=== PATIENT | female | born 1955 | race Caucasian/White ===

== ENCOUNTER 2017-11-04 15:31 | Outpatient (RCR) | payer OTHER ==
[~2017-11-04 15:31] MED LIST: ASPI-84; CARV6.25; CLOP75TA; HCT25T; HYDR-2890 PO; MORP60TA28 PO; RMP5C
== END 2017-11-06 | disposition home or self-care (01) ==
PROVIDERS: ATTEND Internal Medicine
DX: M54.41 Lumbago with sciatica, right side (principal)

== ENCOUNTER 2017-11-24 12:52 | Outpatient (RCR) | payer OTHER | END 2018-01-18 12:04 | disposition home or self-care (01) | PROVIDERS: ATTEND Internal Medicine | DX: M54.41 Lumbago with sciatica, right side (principal) ==

== ENCOUNTER → 2018-11-14 | Outpatient (CLI) | payer BC ==
--- NOTE | 2018-11-14 11:44 | Diagnostic Imaging Report ---
PROCEDURE: US Gallbladder. TECHNIQUE: Multiple real-time grayscale images were obtained over the right upper quadrant in various projections. INDICATION: Acute right flank pain. There are no prior studies available for comparison. FINDINGS: There is cholelithiasis and the gallbladder does seem somewhat distended. The gallbladder wall is not thickened and there is no pericholecystic fluid to suggest acute cholecystitis. However, the common bile duct is dilated measuring 8.5 mm (normal 6 mm or less). There is no evidence for choledocholithiasis or for a mass to account for the dilatation of the common bile duct. If further evaluation is desired, however, then MRCP would be recommended. The liver is prominent and somewhat more echogenic than usually seen. This does suggest fatty metamorphosis. There is no focal mass involving the liver and the biliary tree is not abnormally dilated. The pancreas, right kidney and proximal aorta and inferior vena cava were unremarkable. IMPRESSION: 1. There is cholelithiasis and the gallbladder does seem distended. There is no evidence for acute cholecystitis but there is dilatation of the common bile duct. If further evaluation of the common bile duct is desired, then MRCP would be recommended. 2. The appearance of the liver does suggest fatty metamorphosis. Dictated by: Dictated on workstation # [id number]
== END ==
LOC: RAD 08:48
PROVIDERS: ATTEND Family Medicine
DX: K80.20 Calculus of gallbladder without cholecystitis without obstruction (principal); K83.8 Other specified diseases of biliary tract
CPT/HCPCS: 76705

== ENCOUNTER 2019-02-09 05:29 | Outpatient (CLI) | payer BC ==
[~2019-02-09] VITALS: Ht 170.2 cm; Wt 90.0 kg
[2019-02-09] MEDS ORDERED: OXYC-465 PO (14:24)
[2019-02-09] MEDS ORDERED: POTA-51 PO (14:24)
[2019-02-09] MEDS ORDERED: MORP-33 PO (14:24)
[2019-02-09] MEDS ORDERED: DIAZ10TA3 PO (14:24)
[2019-02-09] MEDS ORDERED: SENN-109 PO (14:24)
[2019-02-09] MEDS ORDERED: PRAV20TA3 PO (14:24)
[2019-02-09] MEDS ORDERED: MORP30CP12 PO (14:24)
[2019-02-09] MEDS ORDERED: GLYB5TAB6 PO ×2 (14:24)
[2019-02-09] MEDS ORDERED: ASPI-999 PO (14:24)
[2019-02-09] MEDS ORDERED: HYDR25TA4 PO (14:24)
[2019-02-09] MEDS ORDERED: CARV6.252 PO (14:24)
[2019-02-09] MEDS ORDERED: RAMI10CA69 PO (14:24)
== END 2019-02-09 14:28 | disposition home or self-care (01) ==
LOC: PREOP 05:29
PROVIDERS: ATTEND Surgery
DX: Z01.818 Encounter for other preprocedural examination (principal)

== ENCOUNTER → 2020-04-01 | Outpatient (CLI) | payer BC, MEDICARE ==
[~2020-04-01] MED LIST changes: +ASPI-999 PO; +CARV6.252 PO; +DIAZ10TA3 PO; +GLBR5T PO; +HYDR25TA4 PO; +MORP-68 PO; +MORP30CP12 PO; +OXYC-556 PO; +POTA-51 PO; +PRAV20TA3 PO; +RAMI10CA69 PO; +SENN-109 PO
[2020-04-01 13:20] LABS: ALANINE AMINOTRANSFERASE 21 U/L (0-55); ALBUMIN 4.3 GM/DL (3.2-4.5); ALKALINE PHOSPHATASE 58 U/L (40-136); BILIRUBIN,TOTAL 0.5 MG/DL (0.1-1.0); BUN/CREATININE RATIO 19; CALCIUM 9.5 MG/DL (8.5-10.1); CARBON DIOXIDE 23 MMOL/L (21-32); CHLORIDE 97 MMOL/L (98-107); CHOLESTEROL 164 MG/DL (< 200); CREATININE SERUM 0.84 MG/DL (0.60-1.30); GFR ESTIMATED > 60; GLUCOSE 233 MG/DL (70-105); HDL CHOLESTEROL 42 MG/DL (40-60); POTASSIUM 3.9 MMOL/L (3.6-5.0); SODIUM 132 MMOL/L (135-145); TOTAL PROTEIN 7.4 GM/DL (6.4-8.2); TRIGLYCERIDES 113 MG/DL (<150); VLDL CHOLESTEROL 23 MG/DL (5-40)
== END ==
LOC: CARD 13:00
PROVIDERS: ATTEND Physician Assistant
DX: I25.10 Atherosclerotic heart disease of native coronary artery without angina pectoris (principal); I34.0 Nonrheumatic mitral (valve) insufficiency; I51.7 Cardiomegaly; E78.2 Mixed hyperlipidemia; Z95.5 Presence of coronary angioplasty implant and graft
CPT/HCPCS: 36415; 80053; 80061; 84443; 93225; 93226; 93306

== ENCOUNTER → 2021-04-08 | Outpatient (CLI) | payer MEDICARE ==
[~2021-04-08] MED LIST changes: +CATHETER FLUSH 10 ML SYR IVP PRN
[2021-04-08 09:49] VITALS: BP 170/80
[2021-04-08 09:55] VITALS: BP 173/81
--- NOTE | 2021-04-08 16:14 | Cardiology Stress Test Report ---
Stress Test Report Date of Procedure/Referring: Date of Procedure: Apr 08, 2021 Brianda Graham Admitting Physician Reyes Chappell MD Indications: HTN Baseline Heart Rate: 60 Baseline Blood Pressure: Blood Pressure Systolic: 173 Blood Pressure Diastolic: 81 Vital Signs Date Time Temp Pulse Resp B/P (MAP) Pulse Ox O2 Delivery O2 Flow Rate FiO2 04/08/21 09:49 63 18 170/80 (110) 98 Room Air Baseline Vital Signs Vital Signs Date Time Temp Pulse Resp B/P (MAP) Pulse Ox O2 Delivery O2 Flow Rate FiO2 04/08/21 09:49 63 18 170/80 (110) 98 Room Air Baseline EKG: Baseline EKG: NSR Summary: After explaining the procedure and details to the patient, she signed the consent and was brought to the stress nuclear laboratory. Patient exercised on standard Tee protocol, EKG, heart rate and blood pressure were monitored continuously, resting and stress doses of radio tracer were injected, imaging was acquired and reviewed in the short axis, horizontal long axis and vertical long axis views Patient was able to exercise for a total of 3 minutes on Tee protocol, METs 4 Maximum heart rate 99 Maximum blood pressure 228/94 Stress EKG, Minimal nondiagnostic changes Recovery EKG, Return to baseline TID: 1.1 SSS: 3 SDS: 3 EF: 55 Conclusion: 1. Poor exercise tolerance for a total of 3 minutes on standard Tee protocol, four METS achieving 99% of maximal expected heart rate 2. Appropriate heart rate response to exercise with severe hypertensive response to exercise with peak blood pressure 228/94 return to baseline during recovery 3. Nondiagnostic EKG changes with exercise return to baseline during recovery 4. Breast attenuation with mild decrease uptake at the apex with mild reversibility, no significant ischemia or infarction on SPECT images 5. Normal left ventricular size, EF 55% CHARLES HILLIARD MD Apr 08, 2021 16:14
== END ==
LOC: CARD 08:15
PROVIDERS: ATTEND Physician Assistant
DX: I10 Essential (primary) hypertension (principal)
CPT/HCPCS: 78452; 93017; A9502

== ENCOUNTER 2021-06-04 14:28 | Outpatient (RCR) | payer OTHER ==
[~2021-06-04 14:28] MED LIST changes: -CATHETER FLUSH 10 ML SYR IVP PRN
== END 2021-06-06 | disposition home or self-care (01) ==
PROVIDERS: ATTEND Physical Medicine & Rehabilitation
DX: M51.36 Other intervertebral disc degeneration, lumbar region (principal); M47.816 Spondylosis without myelopathy or radiculopathy, lumbar region; C57.01 Malignant neoplasm of right fallopian tube; I11.9 Hypertensive heart disease without heart failure; E11.9 Type 2 diabetes mellitus without complications

== ENCOUNTER 2021-07-02 12:53 | Outpatient (RCR) | payer OTHER | END 2021-07-02 13:41 | disposition home or self-care (01) | PROVIDERS: ATTEND Physical Medicine & Rehabilitation | DX: M47.816 Spondylosis without myelopathy or radiculopathy, lumbar region (principal); M51.36 Other intervertebral disc degeneration, lumbar region; C57.01 Malignant neoplasm of right fallopian tube; I11.9 Hypertensive heart disease without heart failure; E11.9 Type 2 diabetes mellitus without complications ==

== ENCOUNTER 2022-01-22 05:39 | Outpatient (CLI) | payer MEDICARE ==
[~2022-01-22] VITALS: Ht 170.2 cm; Wt 85.5 kg
[2022-01-22] MEDS ORDERED: MULT-1136 PO (10:08)
[2022-01-22] MEDS ORDERED: DAPA5TAB PO (10:08)
[2022-01-22] MEDS ORDERED: METO50TA15 PO (10:08)
[2022-01-22] MEDS ORDERED: DOCU-143 PO (10:08)
[2022-01-22] MEDS ORDERED: ATOR10TA66 PO (10:08)
[2022-01-22] MEDS ORDERED: DULA1.5P2 SQ (10:08)
[2022-01-22] MEDS ORDERED: IBUP-1780 PO (12:30)
[2022-01-22] MEDS ORDERED: OMEG-145 PO (12:30)
== END 2022-01-22 12:32 ==
LOC: PREOP 05:39
PROVIDERS: ATTEND Obstetrics & Gynecology
DX: Z01.818 Encounter for other preprocedural examination (principal); N81.10 Cystocele, unspecified; N81.6 Rectocele

== ENCOUNTER 2022-01-25 10:24 | Day surgery (SDC) | payer MEDICARE ==
[~2022-01-25 10:24] MED LIST changes: +ATOR10TA66 PO; +DAPA5TAB PO; +DOCU-143 PO; +DULA1.5P2 SQ; +IBUP-1780 PO; +METO50TA15 PO; +MULT-1136 PO; +OMEG-145 PO
[2022-01-25] MEDS ORDERED: ESTROGENS CONJ. CREAM 30 GM (PREMARIN) TUBE ONE (10:36)
[2022-01-25] MEDS ORDERED: VASOPRESSIN INJECTION 20 UNIT/ML VIAL ONE (10:37)
[2022-01-25] MEDS ORDERED: NS (IVPB) 100 ML ONE (10:37)
[2022-01-25] MEDS ORDERED: OXYC-556 PO (12:05)
== END 2022-01-25 11:15 | disposition home or self-care (01) ==
LOC: SDC 10:24
PROVIDERS: ATTEND Obstetrics & Gynecology
DX: N81.10 Cystocele, unspecified (principal); N81.6 Rectocele; Z53.9 Procedure and treatment not carried out, unspecified reason
CPT/HCPCS: 82947

== ENCOUNTER → 2022-02-09 | Outpatient (CLI) | payer MEDICARE | END | disposition home or self-care (01) | LOC: PREOP 05:34 | PROVIDERS: ATTEND Obstetrics & Gynecology | DX: Z01.818 Encounter for other preprocedural examination (principal) ==

== ENCOUNTER 2022-05-31 12:19 | Outpatient (CLI) | payer MEDICARE ==
[~2022-05-31] VITALS: Ht 171.5 cm; Wt 87.4 kg
== END 2022-05-31 14:27 ==
LOC: PREOP 12:19
PROVIDERS: ATTEND Obstetrics & Gynecology
DX: Z01.818 Encounter for other preprocedural examination (principal); N81.10 Cystocele, unspecified; N81.6 Rectocele

== ENCOUNTER 2022-06-08 13:39 | Day surgery (SDC) | payer MEDICARE ==
[2022-06-08] VITALS (9 sets, daily range): BP systolic 126–154; BP diastolic 61–80
[~2022-06-08] VITALS: Ht 171.5 cm; Wt 87.4 kg
[~2022-06-08 13:39] MED LIST changes: +ONDANSETRON 4 MG/2 ML (SDV) Z0FRAN IVP PRN; +morphine INJ 10 MG/ML 1ML (SYR OR VIAL) IVP ONE
[2022-06-08] MEDS: KETOROLAC 30 MG/ML VIAL IV PRN ×2 (13:50→23:59)
[2022-06-08] MEDS: HYDROcodone/APAP 7.5 MG/325 MG (LORTAB, LORCET PLUS) TABLET PO PRN (13:50)
[2022-06-08] MEDS ORDERED: ONDANSETRON 4 MG/2 ML (SDV) Z0FRAN ONE (13:51)
[2022-06-08] MEDS ORDERED: metroNIDAZOLE 500MG/100ML IVPB 100 ML IV ONE (14:45)
[2022-06-08] MEDS ORDERED: ceFAZolin INJECTION 2,000 MG in NS (IVPB) 50 ML IV ONE (14:45)
[2022-06-08] MEDS ORDERED: BUPIVACAINE 0.5% 30 ML (SENSORCAINE) VIAL INJ ONE (15:00)
[2022-06-08 16:51] LABS: BASOPHILS % (AUTO) 1 % (0-10); EOSINOPHILS % (AUTO) 3 % (0-10); HEMATOCRIT 41 % (35-52); HEMOGLOBIN 13.7 g/dL (11.5-16.0); LYMPHOCYTES % (AUTO) 20 % (12-44); MEAN CORPUSCULAR HEMOGLOBIN 32 pg (25-34); MEAN CORPUSCULAR HGB CONC 34 g/dL (32-36); MEAN CORPUSCULAR VOLUME 94 fL (80-99); MEAN PLATELET VOLUME 10.2 fL (9.0-12.2); MONOCYTES % (AUTO) 9 % (0-12); NEUTROPHILS % (AUTO) 68 % (42-75); PLATELET COUNT 161 10^3/uL (130-400); WHITE BLOOD COUNT 6.1 10^3/uL (4.3-11.0)
[2022-06-08 16:52] LABS: EOSINOPHILS # (AUTO) 0.2 10^3/uL (0.0-0.3); LYMPHOCYTES # (AUTO) 1.2 X 10^3 (1.0-4.0); MONOCYTES # (AUTO) 0.5 X 10^3 (0.0-1.0); NEUTROPHILS # (AUTO) 4.1 X 10^3 (1.8-7.8)
[2022-06-08] MEDS ORDERED: IBUPROFEN 600 MG (MOTRIN) TAB PO PRN (17:00)
[2022-06-08 18:06] LABS: ALBUMIN 3.8 GM/DL (3.2-4.5); BILIRUBIN,TOTAL 0.4 MG/DL (0.1-1.0); CALCIUM 8.6 MG/DL (8.5-10.1); CREATININE SERUM 0.75 MG/DL (0.60-1.30); POTASSIUM 3.3 MMOL/L (3.6-5.0); TOTAL PROTEIN 6.5 GM/DL (6.4-8.2)
[2022-06-08] MEDS: D5 LR IV SOLUTION 1,000 ML IV SCH (20:00)
[2022-06-08] MEDS: ONDANSETRON 4 MG/2 ML (SDV) Z0FRAN IVP PRN ×2 (20:03→23:58)
--- NOTE | 2022-06-08 21:25 | OPERATIVE REPORT ---
DATE OF SERVICE: 06/08/2022 PREOPERATIVE DIAGNOSES: A 67-year-old female with pelvic organ prolapse, grade III cystocele, grade 2 rectocele. POSTOPERATIVE DIAGNOSES: A 67-year-old female with pelvic organ prolapse, grade III cystocele, grade 2 rectocele. PROCEDURE: Robotic-assisted total laparoscopic hysterectomy with bilateral salpingo-oophorectomy with anterior and posterior colporrhaphy. SURGEON: Devyn Sanchez DO VENEER SAMPLE MAKER: Serena Wilkins DNP was necessary for manipulation and retraction throughout the procedure. ANESTHESIA: General endotracheal. ESTIMATED BLOOD LOSS: 50 mL URINE OUTPUT: 850 mL clear at the end of the procedure. FLUIDS: 1600 mL lactated Ringer's solution. FINDINGS: Almost completely prolapsed uterus with a grade III cystocele and rectocele with reduction of the uterus and cervix into the vagina. SPECIMEN SENT: Uterus, bilateral fallopian tubes and ovaries. INDICATIONS FOR PROCEDURE: This 67-year-old female is the patient who had sought care in my office for pelvic organ prolapse. She had a finding of significant prolapse. We discussed pessary treatment, however, the patient is sexually active at least 2-3 times a week and desires surgical management of this. I discussed with the patient that there is a failure rate with surgery; however, there may be a potential need for self maintenance with pessary at home after the procedure, but addressing this could potentially be curative for her prolapse issues. Risks of the procedure including breakdown, recurrence, risk from anesthesia, possible bleeding, possible need for blood transfusion and even were all discussed with the patient in detail. After all of her questions were answered, she was agreeable to proceed. Consent was obtained. The patient was taken to the operating room. OPERATIVE REPORT IN DETAIL: Once in the operating room, anesthesia was administered and found to be adequate, was placed in dorsal lithotomy position, prepped and draped in normal sterile fashion where a timeout was performed. A Meza catheter was placed using sterile technique. The uterus had to be reduced back into the pelvis. I began by placing #0 Vicryl suture in the anterior lip of the cervix and used as my retraction point. I then gently sound the uterine cavity, depth was found to be 8 cm. I selected 8 cm BULMARO uterine manipulator tip and a 3.5 cm colpotomy ring. The manipulator tip was placed into the uterus where the balloon was deployed and the colpotomy ring was advanced around the vaginal fornix. The entire BULMARO device was then used to keep the cervix and uterus within the vagina. All other instruments were removed from the patient's vagina, performed change of gloves and my attention to the abdomen where subcostally at the midclavicular line. I introduced a Veress needle on the left side. Intraperitoneal placement was confirmed using a saline drop test and opening pressure of 4 mmHg was noted. I proceeded with CO2 insufflation to max pressure of 15 mmHg, at which point I make an 8 mm infraumbilical incision with a knife and directed blunt laparoscopic da Jayden camera trocar through the incision until intraperitoneal pressure was confirmed using the da Jayden laparoscope. There was no evidence of damage upon entry. A brief scan of the upper abdominal anatomy appears to be grossly normal with no evidence of damage upon the Veress entry site and the Veress was removed at that point. I then had the patient placed in steep Trendelenburg to visualize all my pelvic anatomy as defined in my findings above. I placed 2 lateral trocars using both 8 mm trocars approximately 8 cm lateral to my supraumbilical trocar. Once both of these were placed under direct visualization laparoscope, I bring in the da Jayden robot and docked in appropriate fashion. Using SynchroSeal device in the left hand and monopolar kenia in the right hand, I performed the following dissection bilaterally. Starting at the IP ligament, I sealed and transected using the SynchroSeal device. I then sealed and transected the round ligament using a SynchroSeal device. This allowed me to grasp the entire broad ligament, which I sealed and transected using a SynchroSeal device down to the level of the lower uterine segment, at which point I the anterior and posterior leaflets of the broad ligament. Anterior leaflet dissection was taken around the anterior vaginal fornix. Posterior leaflet was taken around the posterior vaginal fornix. This allows me to skeletonize the uterine vessels laterally, which I sealed and transected using a SynchroSeal device. I then created a colpotomy at 12 o'clock position using monopolar kenia and take this circumferentially around the vaginal fornix amputating the cervix away from the vagina. The entire specimen was then removed through the vagina. I then closed the vaginal cuff using 2-0 V-Loc in a running fashion. There was no active bleeding noted from a dissection planes. I then undocked da Jayden robot and proceeded with remainder of case laparoscopically. I copiously irrigated the pelvis using normal saline. Once again no active bleeding noted from any of my dissection planes. I covered the planes of dissection using Surgiflo hemostatic agent. I had the patient taken out of steep Trendelenburg where I removed the lateral trocars under direct visualization, laparoscope. The supraumbilical trocar was left in place to release insufflation and to introduce 10 mL of 0.25% Marcaine in the peritoneal cavity for postoperative pain management, then removed this trocar as well. The skin reapproximated using 4-0 Monocryl and interrupted subcuticular stitches. Dermabond was applied to the incisions and Band-Aids were placed over the incisions as well. I then turned my attention to the pelvis where I began by repairing the cystocele. The margins of the cystocele mucosally are injected with vasopressin a concentration of 20 units in 100 mL of normal saline. Once an adequate blanching was noted, I make an incision down the midline of the cystocele until the submucosa was encountered, at which point I dissected off the underlying submucosa and trim back the excess vaginal mucosa. I reapproximated the vesicovaginal fascia plicating it, added lateral margins to reduce the cystocele down the midline. I then reapproximated the vaginal mucosa using 3-0 Vicryl suture after 0 Vicryl suture using my plication suture. I reapproximated the mucosa using 2-0 Vicryl suture in a running locked fashion, after which there was no active bleeding noted from any of my dissection planes. I then turned my attention to the rectocele where I make a triangular incision on the perineum. This is done after I infiltrated this area using vasopressin in similar fashion the margins of the rectocele. Once that incision was made, I dissected off the cutaneous tissue and taken dissection down the midline of the rectocele using the Metzenbaum scissors undermining down the midline. I then made an incision down the midline and dissected off the underlying mucosa and rectovaginal fascia to the lateral margins of the rectocele. I then reapproximated the mucosa and the vaginal rectal fascia in one layer using 3-0 Vicryl suture in a running locked fashion and I reapproximated the peritoneum by reinforcing the perineal body using a 0 Vicryl suture in a crown stitch and then reapproximating the skin in a running subcuticular. There is no active bleeding noted from that dissection plane either after it is completed. I then packed the vagina using Premarin-soaked packing, leave the Meza catheter in place. The patient tolerated the procedure well and sent to recovery area in stable condition. Lap and sponge counts were correct at the end of the procedure. Instrument counts were correct as well. Two grams Ancef and 500 mg of Flagyl were given for infection prophylaxis. Job ID: [id number] DocumentID: [id number] Dictated Date: 06/08/2022 14:14:06 Legal Executive Assistant Date: 06/08/2022 21:24:00 Dictated By: DO MARGY FRANZ
[2022-06-09 00:01] VITALS: BP 156/72
[2022-06-09] MEDS: D5 LR IV SOLUTION 1,000 ML IV SCH ×2 (04:05→12:04)
[2022-06-09 04:06] VITALS: BP 153/86
[2022-06-09] MEDS: ONDANSETRON 4 MG/2 ML (SDV) Z0FRAN IVP PRN ×2 (05:55→10:00)
[2022-06-09 08:00] VITALS: BP 164/76
[2022-06-09] MEDS: HYDROcodone/APAP 7.5 MG/325 MG (LORTAB, LORCET PLUS) TABLET PO PRN (08:34)
[2022-06-09] MEDS: KETOROLAC 30 MG/ML VIAL IV PRN (08:34)
--- NOTE | 2022-06-09 11:42 | Anesthesia-General Post-Op ---
General Patient Condition Mental Status/LOC: Same as Preop Cardiovascular: Satisfactory Nausea/Vomiting: Absent Respiratory: Satisfactory Pain: Controlled Complications: Absent Post Op Complications Complications None Follow Up Care/Instructions Patient Instructions None needed. Anesthesia/Patient Condition Patient Condition Patient is doing well, no complaints, stable vital signs, no apparent adverse anesthesia problems. No complications reported per nursing. MELONIE WOOD CRNA June 09, 2022 11:42
[2022-06-09 12:00] VITALS: BP 140/65
[2022-06-09] MEDS ORDERED: VASOPRESSIN INJECTION 20 UNIT in NS (IVPB) 100 ML IV SCH ×4 (13:30)
[2022-06-09 13:47] VITALS: BP 140/65
--- NOTE | 2022-06-18 08:14 | History & Physical-Surgical ---
HPO-Surgical History of Present Illness Chief Complaint: POP Diagnosis/Surgical Indication: POP, CYSTOCELE,RECTOCELE Procedure: ROBOTIC ASSITED TOTAL LAPAROSCOPIC HYSTERECTOMY WITH BSO, POSSIBLE A & P REPAIR Date of Surgery: June 08, 2022 Weight (Pounds): 208 Height (Feet): 5 Height (Inches): 9 Allergies and Home Medications Allergies Coded Allergies: fenofibrate (Verified Allergy, Unknown, rash, 05/31/22) tramadol (Verified Allergy, Unknown, Hives, 05/31/22) Patient Home Medication List Home Medication List Reviewed: Yes Aspirin (Aspirin) 81 Mg Tab.chew, 81 MG PO DAILY, (Reported) Entered as Reported by: KUSH MALAGON on 02/09/19 142 Atorvastatin Calcium (Atorvastatin Calcium) 10 Mg Tablet, 10 MG PO HS, (Reported) Entered as Reported by: ANGIE LUNDBERG on 01/22/22 100 Dapagliflozin Propanediol (Farxiga) Unknown Strength Tablet, Unknown Dose PO, (Reported) Entered as Reported by: ANGIE LUNDBERG on 01/22/22 100 Diazepam (Diazepam) 10 Mg Tablet, 10 MG PO Q8H PRN for ANXIETY, (Reported) Entered as Reported by: KUSH MALAGON on 02/09/19 142 Docusate Sodium (Colace) 100 Mg Capsule, 100 MG PO DAILY, (Reported) Entered as Reported by: ANGIE LUNDBERG on 01/22/22 100 Dulaglutide (Trulicity) 1.5 Mg/0.5 Ml Pen.injctr, 3 MG SQ UD, (Reported) Entered as Reported by: ANGIE LUNDBERG on 01/22/22 100 Glyburide (Glyburide) 5 Mg Tablet, 5 MG PO DAILY, (Reported) Entered as Reported by: KUSH MALAGON on 02/09/19 142 Glyburide (Glyburide) 5 Mg Tablet, 5 MG PO HS, (Reported) Entered as Reported by: KUSH MALAGON on 02/09/19 142 Hydrochlorothiazide (Hydrochlorothiazide) 25 Mg Tablet, 25 MG PO DAILY, (Reported) Entered as Reported by: KUSH MALAGON on 02/09/19 142 Ibuprofen (Ibuprofen) 800 Mg Tablet, 800 MG PO Q8H PRN for PAIN-MILD, (Reported) Entered as Reported by: ANGIE LUNDBERG on 01/22/22 1230 Metoprolol Tartrate (Metoprolol Tartrate) 50 Mg Tablet, 50 MG PO HS, (Reported) Entered as Reported by: ANGIE LUNDBERG on 01/22/22 1008 Morphine Sulfate (Morphine Sulfate ER) 15 Mg Tablet.er, 15 MG PO BID, (Reported) Entered as Reported by: KUSH MALAGON on 02/09/19 1424 Multivitamin (Multivitamin) 1 Each Tablet, 1 EACH PO DAILY, (Reported) Entered as Reported by: ANGIE LUNDBERG on 01/22/22 1008 [place]-3/Dha/Epa/Fish Oil (Fish Oil 500 mg Softgel) 60 Mg-90 Mg-500 Mg Capsule, 1 EACH PO UD, (Reported) Entered as Reported by: ANGIE LUNDBERG on 01/22/22 1230 Oxycodone HCl/Acetaminophen (Oxycodone-Acetaminophen 10-325) 10 Mg-325 Mg Tablet, 1 EACH PO QID PRN for PAIN-MODERATE, (Reported) Entered as Reported by: ELVIE GARDINER on 01/25/22 1205 Potassium Chloride (Potassium Chloride) 20 Meq Tablet.er, 20 MEQ PO DAILY, (Reported) Entered as Reported by: KUSH MALAGON on 02/09/19 1424 Ramipril (Ramipril) 10 Mg Capsule, 10 MG PO BID, (Reported) Entered as Reported by: KUSH MALAGON on 02/09/19 1424 Sennosides/Docusate Sodium (Senna-S Tablet) 1 Each Tablet, 2 EACH PO DAILY, (Reported) Entered as Reported by: KUSH MALAGON on 02/09/19 1424 Past Nncigqw-Fhqrdp-Wjmfey Hx Patient Social History Former Smoker, Quit: Aug 07, 2018 Recent Hopitalizations: No Immunizations Up To Date Date of Pneumonia Vaccine: May 31, 2020 Date of Influenza Vaccine: Nov 05, 2021 Seasonal Allergies Seasonal Allergies: Yes Surgeries Yes Coronary Stent Respiratory No Cardiovascular Yes (stent x1 - DR HILLIARD, [place]-15 + YEARS AGO) Heart Attack, High Cholesterol, Hypertension Neurological Yes Headaches /Migraines Reproductive System : No Genitourinary No (CYSTOCELE AND RECTOCELE) Gastrointestinal Yes Gall Bladder Disease Musculoskeletal Yes Arthritis, Chronic Back Pain Endocrine History of Endocrine Disorders: Yes Endocrine Disorders: Diabetes, Non-Insulin dep HEENT History of HEENT Disorders: No Cancer No Psychosocial History of Psychiatric Problem: No Integumentary History of Skin or Integumenta: Yes (mole on right cheek) Blood Transfusions History of Blood Disorders: No Adverse Reaction to a Blood Tr: No (BLOOD TRANSFUSIONS WITH 3/4 CHILDREN) Exam Vital Signs Capillary Refill : Less Than 3 SecondsLess Than 3 Seconds General Appearance: Alert, Oriented X3 HEENT: Atraumatic Skin: No Rashes Neuro: Normal Gait Psych/Mental Status: Mental Status NL Assessment/Plan Admission Diagnosis Diagnosis: 67 yo female with POP P: RATLH w/ BSO and A/P repair Admission Status: Other (Same Day Surgery) AMANDA ROBERTS DO June 18, 2022 08:14
== END 2022-06-09 14:35 | disposition home or self-care (01) ==
LOC: SDC 13:39 → WS 17:09 → SDC 06-09 14:35
PROVIDERS: ATTEND Obstetrics & Gynecology
DX: N81.3 Complete uterovaginal prolapse (principal); N81.89 Other female genital prolapse; N81.6 Rectocele; N80.03 Adenomyosis of the uterus; N83.8 Other noninflammatory disorders of ovary, fallopian tube and broad ligament; N94.89 Other specified conditions associated with female genital organs and menstrual cycle; N83.201 Unspecified ovarian cyst, right side; D27.1 Benign neoplasm of left ovary; E66.9 Obesity, unspecified; N39.46 Mixed incontinence; F17.210 Nicotine dependence, cigarettes, uncomplicated; Z68.29 Body mass index [BMI] 29.0-29.9, adult
CPT/HCPCS: 36415; 80053; 85025; 86850; 86900; 86901; 87081; 88307